=== PATIENT | male | born 2000 | race Caucasian/White ===

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

== ENCOUNTER 2020-12-21 19:04 | Emergency (ER) | payer SELFPAY ==
[~2020-12-21] VITALS: Ht 172 cm; Wt 121.9 kg
[2020-12-21] MEDS ORDERED: LACTATED RINGERS 1,000 ML IV ONE (19:15)
[2020-12-21] MEDS ORDERED: ONDANSETRON 4 MG/2 ML (SDV) Z0FRAN IVP ONE (19:15)
--- NOTE | 2020-12-21 19:19 | ED Abdominal Pain ---
General Stated Complaint: STOMACH PAIN/SWELLING Source of Information: Patient History of Present Illness Date Seen by Provider: Dec 21, 2020 Time Seen by Provider: 19:11 Initial Comments PT ARRIVES VIA POV FROM HOME C/O LLQ PAIN SINCE Tuesday12/18/20 PAIN IS SHARP AT TIMES, IS THERE MOST OF THE TIME, BUT NOT WHILE HE SLEEPS NO RADIATION OF PAIN PAIN IS WORSE WITH SITTING OR STANDING, BETTER WITH LAYING DOWN STATES HE ATE PIZZA AN HOUR AGO. + NAUSEA, NO VOMITING HAD NORMAL BM TODAY NO URINARY SYMPTOMS NO FEVER NO KNOWN INJURY, BUT LIFTS HEAVY OBJECTS ALL DAY--[place] [employer] [place] LIFT[place] 400-500 LB PIECES OF [employer] WITH ONE OTHER PERSON THIS WEEK TOOK IBUPROFEN 4 HOURS AGO, WITH A LITTLE RELIEF NO HISTORY OF SIMILAR OR PRIOR ABDOMINAL SURGERY PCP: ISHA Allergies and Home Medications Allergies Coded Allergies: No Known Drug Allergies (Unverified , 02/13/14) Home Medications Azithromycin 250 Mg Tablet, 250 MG PO UD TAKE 2 TABLETS TODAY, THEN TAKE 1 TABLET DAILY FOR 4 MORE DAYS Prescribed by: GERA MILLER on 01/20/162036 Cephalexin 500 Mg Capsule, 1,000 MG PO BID Prescribed by: LELO LUNA on 04/17/16339 Cyclobenzaprine HCl 10 Mg Tablet, 10 MG PO Q8H PRN for SPASMS Prescribed by: HERBERT GAVIRIA on 12/21/202032 D-Methorphan Hb/P-Epd HCl/Bpm 118 Ml Syrup, 5-10 ML PO Q6H PRN for CONGESTION Prescribed by: CARLA MONGE on 08/23/162147 Meloxicam 15 Mg Tablet, 15 MG PO DAILY Prescribed by: HERBERT GAVIRIA on 12/21/202032 Mupirocin Calcium 15 Gm Cream..g., 1 GM TP BID Prescribed by: LELO LUNA on 04/17/16340 Prednisone 20 Mg Tab, 40 MG PO DAILY Prescribed by: DENIS FRANK on 06/18/172238 Patient Home Medication List Home Medication List Reviewed: Yes Review of Systems Review of Systems Constitutional: no symptoms reported Respiratory: No Symptoms Reported Cardiovascular: No Symptoms Reported Gastrointestinal: See HPI, Abdominal Pain; Denies Constipated, Denies Diarrhea; Nausea; Denies Vomiting Genitourinary: No Symptoms Reported Musculoskeletal: no symptoms reported; No back pain Skin: no symptoms reported Psychiatric/Neurological: No Symptoms Reported Endocrine: No Symptoms Reported Hematologic/Lymphatic: No Symptoms Reported Past Dskxzms-Qunpju-Qwgngb Hx Past Med/Social Hx: Reviewed and Corrections made Patient Social History Alcohol Use: Occasionally Uses Drug of Choice: DENIES Smoking Status: Former Smoker (SMOKED 1/2 PPD, QUIT 4 MONTHS AGO 09/2020) Type Used: Cigarettes Recent Hopitalizations: No Immunizations Up To Date PED Vaccines UTD: Yes Seasonal Allergies Seasonal Allergies: No Past Medical History Surgeries: No Respiratory: No Cardiac: No Neurological: No Reproductive Disorders: No Genitourinary: No Gastrointestinal: No Musculoskeletal: No Endocrine: No HEENT: No Cancer: No Psychosocial: Yes ADD/ADHD, Bipolar Integumentary: No Blood Disorders: No Adverse Reaction/Blood Tranf: No Family Medical History Asthma Physical Exam Vital Signs Vital Signs - First Documented 12/21/20 19:10 Temp 36.8 Pulse 119 Resp 18 B/P (MAP) 156/118 (131) Pulse Ox 98 O2 Delivery Room Air Capillary Refill : Height/Weight/BMI Height: 5'8.00" Weight: 230lbs. oz. 104.798125nh; 28.12 BMI Method:Stated General Appearance: WD/WN, no apparent distress, obese, other (WALKS UPRIGHT AND MOVES QUICKLY WITHOUT DIFFICULTY. 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, no motor/sensory deficits, alert, normal mood/affect, oriented x 3 Skin: normal color, warm/dry; No rash Focused Exam Lactate Level 12/21/20 19:35: Lactic Acid Level 1.46 Lactic Acid Level Laboratory Tests Test 12/21/20 19:35 Lactic Acid Level 1.46 MMOL/L (0.50-2.00) Progress/Results/Core Measures Results/Orders Lab Results Laboratory Tests Test 12/21/20 19:17 12/21/20 19:35 Range/Units White Blood Count 13.6 H 4.3-11.0 10^3/uL Red Blood Count 5.48 4.30-5.52 10^6/uL Hemoglobin 16.1 13.3-17.7 g/dL Hematocrit 48 40-54 % Mean Corpuscular Volume 87 80-99 fL Mean Corpuscular Hemoglobin 29 25-34 pg Mean Corpuscular Hemoglobin Concent 34 32-36 g/dL Red Cell Distribution Width 11.6 10.0-14.5 % Platelet Count 439 H 130-400 10^3/uL Mean Platelet Volume 9.3 9.0-12.2 fL Immature Granulocyte % (Auto) 0 % Neutrophils (%) (Auto) 69 42-75 % Lymphocytes (%) (Auto) 20 12-44 % Monocytes (%) (Auto) 9 0-12 % Eosinophils (%) (Auto) 2 0-10 % Basophils (%) (Auto) 0 0-10 % Neutrophils # (Auto) 9.4 H 1.8-7.8 10^3/uL Lymphocytes # (Auto) 2.7 1.0-4.0 10^3/uL Monocytes # (Auto) 1.3 H 0.0-1.0 10^3/uL Eosinophils # (Auto) 0.2 0.0-0.3 10^3/uL Basophils # (Auto) 0.0 0.0-0.1 10^3/uL Immature Granulocyte # (Auto) 0.0 0.0-0.1 10^3/uL Urine Color YELLOW Urine Clarity CLEAR Urine pH 6.5 5-9 Urine Specific Maxwell <=1.005 1.016-1.022 Urine Protein NEGATIVE NEGATIVE Urine Glucose (UA) NEGATIVE NEGATIVE Urine Ketones NEGATIVE NEGATIVE Urine Nitrite NEGATIVE NEGATIVE Urine Bilirubin NEGATIVE NEGATIVE Urine Urobilinogen 0.2 < = 1.0 MG/DL Urine Leukocyte Esterase NEGATIVE NEGATIVE Urine RBC (Auto) 1+ H NEGATIVE Urine RBC NONE /HPF Urine WBC NONE /HPF Urine Squamous Epithelial Cells NONE /HPF Urine Crystals NONE /LPF Urine Bacteria NEGATIVE /HPF Urine Casts NONE /LPF Urine Mucus NEGATIVE /LPF Urine Culture Indicated NO Sodium Level 138 135-145 MMOL/L Potassium Level 3.6 3.6-5.0 MMOL/L Chloride Level 103 98-107 MMOL/L Carbon Dioxide Level 22 21-32 MMOL/L Anion Gap 13 5-14 MMOL/L Blood Urea Nitrogen 11 7-18 MG/DL Creatinine 0.90 0.60-1.30 MG/DL Estimat Glomerular Filtration Rate > 60 BUN/Creatinine Ratio 12 Glucose Level 94 70-105 MG/DL Calcium Level 9.6 8.5-10.1 MG/DL Corrected Calcium 9.2 8.5-10.1 MG/DL Total Bilirubin 0.5 0.1-1.0 MG/DL Aspartate Amino Transf (AST/SGOT) 31 5-34 U/L Alanine Aminotransferase (ALT/SGPT) 48 0-55 U/L Alkaline Phosphatase 49 40-136 U/L Total Protein 7.8 6.4-8.2 GM/DL Albumin 4.5 3.2-4.5 GM/DL Amylase Level 73 25-125 U/L Lipase 20 8-78 U/L Urine Opiates Screen NEGATIVE NEGATIVE Urine Oxycodone Screen NEGATIVE NEGATIVE Urine Methadone Screen NEGATIVE NEGATIVE Urine Propoxyphene Screen NEGATIVE NEGATIVE Urine Barbiturates Screen NEGATIVE NEGATIVE Ur Tricyclic Antidepressants Screen NEGATIVE NEGATIVE Urine Phencyclidine Screen NEGATIVE NEGATIVE Urine Amphetamines Screen NEGATIVE NEGATIVE Urine Methamphetamines Screen NEGATIVE NEGATIVE Urine Benzodiazepines Screen NEGATIVE NEGATIVE Urine Cocaine Screen NEGATIVE NEGATIVE Urine Cannabinoids Screen NEGATIVE NEGATIVE Lactic Acid Level 1.46 0.50-2.00 MMOL/L My Orders Orders - HERBERT GAVIRIA DO Ed Iv/Invasive Line Start (12/21/20 19:14) Amylase (12/21/20 19:14) Cbc With Automated Diff (12/21/20 19:14) Comprehensive Metabolic Panel (12/21/20 19:14) Drug Screen Stat (Urine) (12/21/20 19:14) Lactic Acid Analyzer (12/21/20 19:14) Ua Culture If Indicated (12/21/20 19:14) Ed Iv/Invasive Line Start (12/21/20 19:14) Lactated Ringers (Lr 1000 Ml Iv Solution (12/21/20 19:15) Ondansetron Injection (Zofran Injectio (12/21/20 19:15) Ct Abd/Pelvis Wo(Kidney Stone) (12/21/20 19:42) Acute Abd Series (12/21/20 19:42) Ketorolac Injection (Toradol Injection) (12/21/20 19:45) Lipase (12/21/20 19:48) Rx-Cyclobenzaprine Tablet (Rx-Flexeril T (12/21/20 20:34) Medications Given in ED Current Medications Medications Dose Ordered Sig/Genesis Route Start Time Stop Time Status Last Admin Dose Admin Ketorolac Tromethamine 30 mg ONCE ONCE IVP 12/21/20 19:45 12/21/20 19:46 DC 12/21/20 20:01 30 MG Lactated Ringer's 1,000 ml @ 0 mls/hr Q0M ONCE IV 12/21/20 19:15 12/21/20 19:16 DC 12/21/20 19:27 1,000 MLS/HR Ondansetron HCl 4 mg ONCE ONCE IVP 12/21/20 19:15 12/21/20 19:16 DC 12/21/20 19:27 4 MG Vital Signs/I&O 12/21/20 12/21/20 19:10 20:45 Temp 36.8 Pulse 119 94 Resp 18 16 B/P (MAP) 156/118 (131) 126/65 Pulse Ox 98 99 O2 Delivery Room Air Room Air Diagnostic Imaging Comments PER RADIOLOGIST REPORTS AT 2230 ABDOMEN XRAYS--NO ACUTE PROCESS CT ABDOMEN/PELVIS-- FINDINGS: Lung bases: The lung bases are clear. Solid organs: The liver is normal. The gallbladder is normal. There is no biliary ductal dilation. Pancreas is normal. Spleen is normal. Adrenal glands are normal. The kidneys are normal without visualized calculus or hydronephrosis. Bowel: The stomach and small bowel are normal without obstruction. There is scattered colonic diverticulosis. The appendix is normal. Peritoneum: There is no intraperitoneal free fluid or free air. No suspicious lymphadenopathy. Vasculature: Normal without aneurysm. Musculoskeletal: No suspicious osseous lesion or compression fracture. Pelvis: The prostate gland is normal. The urinary bladder is normal. IMPRESSION: 1. No findings of renal calculus or hydronephrosis. 2. Minimal colonic diverticulosis without findings of diverticulitis. Reviewed: Reviewed by Me Departure Impression Primary Impression: LLQ abdominal pain Additional Impression: POSSIBLE ABDOMINAL MUSCLE STRAIN Disposition: HOME, SELF-CARE Condition: Stable Departure-Patient Inst. Referrals: [facility] (PCP/Family) Primary Care Physician Patient Instructions: Abdominal Muscle Strain (DC), Severe Abdominal Pain, Adult (DC) Add. Discharge Instructions: LOTS OF CLEAR LIQUIDS--WATER, BROTH, JELLO, GATORADE TYLENOL NEEDED FOR PAIN FOLLOW UP WITH [facility] IN 3-4 DAYS IF NO BETTER NO LIFTING OVER 20 LBS X 1 WEEK Scripts Cyclobenzaprine HCl (Cyclobenzaprine HCl) 10 Mg Tablet 10 MG PO Q8H PRN for SPASMS, #15 TAB 0 Refills Prov: HERBERT GAVIRIA DO 12/21/20 Meloxicam (Mobic) 15 Mg Tablet 15 MG PO DAILY, #10 TAB Prov: HERBERT GAVIRIA DO 12/21/20 Work/School Note: Work Release Form Date Seen in the Emergency Department: Dec 21, 2020 Return to Work: Dec 22, 2020 Other Restrictions Listed Below: NO LIFTING OVER 20 LBS X 1 WEEK HERBERT GAVIRIA DO Dec 21, 2020 19:19
[2020-12-21 19:24] LABS: BILIRUBIN,URINE NEGATIVE (NEGATIVE); CLARITY,URINE CLEAR; COLOR,URINE YELLOW; GLUCOSE, URINE (UA) NEGATIVE (NEGATIVE); KETONES,URINE NEGATIVE (NEGATIVE); LEUKOCYTE ESTERASE ,URINE NEGATIVE (NEGATIVE); NITRITE,URINE NEGATIVE (NEGATIVE); PH,URINE 6.5 (5-9); PROTEIN,URINE NEGATIVE (NEGATIVE)
[2020-12-21 19:25] LABS: BASOPHILS % (AUTO) 0 % (0-10); EOSINOPHILS # (AUTO) 0.2 10^3/uL (0.0-0.3); EOSINOPHILS % (AUTO) 2 % (0-10); HEMATOCRIT 48 % (40-54); HEMOGLOBIN 16.1 g/dL (13.3-17.7); LYMPHOCYTES # (AUTO) 2.7 10^3/uL (1.0-4.0); LYMPHOCYTES % (AUTO) 20 % (12-44); MEAN CORPUSCULAR HEMOGLOBIN 29 pg (25-34); MEAN CORPUSCULAR HGB CONC 34 g/dL (32-36); MEAN CORPUSCULAR VOLUME 87 fL (80-99); MEAN PLATELET VOLUME 9.3 fL (9.0-12.2); MONOCYTES # (AUTO) 1.3 10^3/uL (0.0-1.0); MONOCYTES % (AUTO) 9 % (0-12); NEUTROPHILS # (AUTO) 9.4 10^3/uL (1.8-7.8); NEUTROPHILS % (AUTO) 69 % (42-75); PLATELET COUNT 439 10^3/uL (130-400); WHITE BLOOD COUNT 13.6 10^3/uL (4.3-11.0)
[2020-12-21 19:32] LABS: BACTERIA,URINE NEGATIVE /HPF
[2020-12-21 19:43] LABS: AMPHETAMINE SCREEN, URINE NEGATIVE (NEGATIVE); BENZODIAZEPINES SCREEN URINE NEGATIVE (NEGATIVE); COCAINE SCREEN URINE NEGATIVE (NEGATIVE); METHAMPHETAMINE SCREEN URINE S NEGATIVE (NEGATIVE)
[2020-12-21 19:44] LABS: BARBITURATE SCREEN URINE NEGATIVE (NEGATIVE); CANNABINOID SCREEN, URINE NEGATIVE (NEGATIVE); METHADONE STAT NEGATIVE (NEGATIVE); OPIATE SCREEN URINE NEGATIVE (NEGATIVE); OXYCODONE STAT NEGATIVE (NEGATIVE); PROPOXYPHENE STAT NEGATIVE (NEGATIVE); TRICYCLIC ANTIDEPRESSANTS SCRE NEGATIVE (NEGATIVE)
[2020-12-21 19:45] LABS: ALANINE AMINOTRANSFERASE 48 U/L (0-55); ALBUMIN 4.5 GM/DL (3.2-4.5); ALKALINE PHOSPHATASE 49 U/L (40-136); AMYLASE 73 U/L (25-125); BILIRUBIN,TOTAL 0.5 MG/DL (0.1-1.0); BUN/CREATININE RATIO 12; CALCIUM 9.6 MG/DL (8.5-10.1); CARBON DIOXIDE 22 MMOL/L (21-32); CHLORIDE 103 MMOL/L (98-107); GFR ESTIMATED > 60; GLUCOSE 94 MG/DL (70-105); POTASSIUM 3.6 MMOL/L (3.6-5.0); SODIUM 138 MMOL/L (135-145); TOTAL PROTEIN 7.8 GM/DL (6.4-8.2)
[2020-12-21] MEDS ORDERED: KETOROLAC 30 MG/ML VIAL IVP ONE (19:45)
--- NOTE | 2020-12-21 20:28 | Diagnostic Imaging Report ---
EXAMINATION: CT Abdomen Pelvis without contrast. TECHNIQUE: Multiple contiguous axial images were obtained through the abdomen and pelvis without the use of intravenous contrast. All CT scans use one or more of the following dose optimizing techniques: automated exposure control, MA and/or KvP adjustment based on a patient size and exam type, or iterative reconstruction. HISTORY: Flank pain, kidney stone suspected COMPARISON: CT abdomen and pelvis 10/29/2015 FINDINGS: Lung bases: The lung bases are clear. Solid organs: The liver is normal. The gallbladder is normal. There is no biliary ductal dilation. Pancreas is normal. Spleen is normal. Adrenal glands are normal. The kidneys are normal without visualized calculus or hydronephrosis. Bowel: The stomach and small bowel are normal without obstruction. There is scattered colonic diverticulosis. The appendix is normal. Peritoneum: There is no intraperitoneal free fluid or free air. No suspicious lymphadenopathy. Vasculature: Normal without aneurysm. Musculoskeletal: No suspicious osseous lesion or compression fracture. Pelvis: The prostate gland is normal. The urinary bladder is normal. IMPRESSION: 1. No findings of renal calculus or hydronephrosis. 2. Minimal colonic diverticulosis without findings of diverticulitis. Dictated by: Dictated on workstation # [id number]
--- NOTE | 2020-12-21 20:29 | Diagnostic Imaging Report ---
EXAMINATION: Abdominal series and chest radiograph HISTORY: abd pain COMPARISON: CT abdomen and pelvis 12/13/2020 FINDINGS: Heart size and pulmonary vasculature are normal. The lungs are clear without consolidation, pleural effusion, or pneumothorax. The osseous structures are intact. There is moderate amount of gas and stool throughout the colon. Nonobstructive bowel gas pattern. No radiopaque foreign body. The osseous structures are intact. IMPRESSION: No acute abnormality in the chest or abdomen. Dictated by: Dictated on workstation # [id number]
[2020-12-21] MEDS ORDERED: CYCL10TA9 PO (20:33)
[2020-12-21] MEDS ORDERED: MELO15TA14 PO (20:33)
[2020-12-21] MEDS ORDERED: RX-CYCLOBENZAPRINE 10 MG (FLEXERIL) TAB PPK#3 PO STA (20:34)
[2020-12-21 20:45] VITALS: BP 126/65
== END 2020-12-21 20:46 | disposition home or self-care (01) ==
LOC: EDUNIT# 19:04 → ER 19:06
DX: R10.32 Left lower quadrant pain (principal); I10 Essential (primary) hypertension; E66.9 Obesity, unspecified; Z68.28 Body mass index [BMI] 28.0-28.9, adult; Z87.891 Personal history of nicotine dependence; Z79.52 Long term (current) use of systemic steroids
CPT/HCPCS: 36415; 74022; 74176; 80053; 80306; 81000; 82150; 83605; 83690; 85025

== ENCOUNTER 2021-02-24 04:59 | Emergency (ER) | payer SELFPAY ==
[~2021-02-24] VITALS: Ht 175 cm; Wt 113.4 kg
[~2021-02-24 04:59] MED LIST changes: +CYCL10TA9 PO; +MELO15TA14 PO
[2021-02-24 05:05] VITALS: BP 141/107
[2021-02-24] MEDS ORDERED: ESCI5TAB PO (05:10)
--- NOTE | 2021-02-24 05:21 | ED EENT ---
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 Source: patient Exam Limitations: no limitations ([place]) History of Present Illness Date Seen by Provider: Feb 24, 2021 Time Seen by Provider: 05:10 Initial Comments Pt presents to ED via POV with complaint of R ear pain. He states that he woke up at 4AM this morning with R ear pain/pressure that he rates 4/10. He states that he has some loss of hearing. He put peroxide in his ear thinking that it was an insect that crawled into his ear. He hasn't taken anything for the pain. Denies prior episodes of similar symptoms. He denies other symptoms of chest pain, SOB, N/V, abd pain, dysuria. Timing/Duration: this morning Severity: moderate Location: ear (R) Prearrival Treatment: no prearrival treatment Presenting Symptoms/Injuries: R ear pain/fullness Associated Symptoms: change in hearing; No cough, No ear drainage, No fever; nasal congestion/drainage ([place]) Allergies and Home Medications Allergies Coded Allergies: No Known Drug Allergies (Unverified , 02/13/14) Patient Home Medication List Home Medication List Reviewed: Yes ([place]) Review of Systems Review of Systems Constitutional: No chills, No fever Eyes: Denies Blurred Vision, Denies Pain, Denies Vision Changes Ears: Pain Nose: denies pain, denies purulent discharge Mouth: denies pain, denies swelling Throat: denies pain, denies swelling Respiratory: No cough, No short of breath Cardiovascular: No chest pain, No edema Gastrointestinal: No abdominal pain, No constipation, No diarrhea Musculoskeletal: No back pain, No joint pain, No muscle pain Skin: No change in color, No rash Neurological: Denies Headache, Denies Numbness, Denies Paresthesia, Denies Tingling ([place]) All Other Systems Reviewed Negative Unless Noted: Yes ([place]) Past Wfwthrk-Ihopna-Orkrel Hx Past Med/Social Hx: Reviewed Nursing Past Med/Soc Hx ([place]) Patient Social History Alcohol Use: Denies Use Drug of Choice: DENIES Smoking Status: Current Everyday Smoker Type Used: Cigarettes Former Smoker, Quit: Aug 26, 2020 Recent Infectious Disease Expo: No Recent Hopitalizations: No ([place] Taaz STUDENT) Immunizations Up To Date Tetanus Booster (TDap): Unknown PED Vaccines UTD: Yes ([place] [employer] STUDENT) Seasonal Allergies Seasonal Allergies: No ([place] [employer] STUDENT) Past Medical History Surgeries: No Respiratory: No Cardiac: No Neurological: No Reproductive Disorders: No Genitourinary: No Gastrointestinal: No Musculoskeletal: No Endocrine: No HEENT: No Cancer: No Psychosocial: Yes ADD/ADHD, Bipolar, Violent Behavior Integumentary: No Blood Disorders: No Adverse Reaction/Blood Tranf: No ([place] [employer] STUDENT) Family Medical History Asthma ([place] [employer] STUDENT) Physical Exam Vital Signs Vital Signs - First Documented 02/24/21 05:05 Temp 36.9 Pulse 90 Resp 18 B/P (MAP) 141/107 (118) Pulse Ox 99 O2 Delivery Room Air (ADDIE RED) Height, Weight, BMI Height: 5'8.00" Weight: 230lbs. oz. 104.328643am; 37.00 BMI Method:Stated General Appearance: WD/WN, no apparent distress Eyes: bilateral eye normal inspection, bilateral eye PERRL, bilateral eye EOMI Ears: right ear erythema (R ear canal erythema), right ear TM bulging (TM bulging with purulent fluid ); left ear auricle normal, left ear other (L ear canal obstructed with dried blood) Nose: normal inspection Mouth/Throat: normal mouth inspection, pharynx normal Neck: non-tender, full range of motion, supple, normal inspection Cardiovascular: normal peripheral pulses, regular rate, rhythm Respiratory: chest non-tender, lungs clear, normal breath sounds, no respiratory distress, no accessory muscle use Gastrointestinal: normal bowel sounds, non tender, soft Neurologic/Psychiatric: no motor/sensory deficits, alert, normal mood/affect, oriented x 3 Skin: normal color, warm/dry ([place] [employer] STUDENT) Progress/Results/Core Measures Results/Orders Vital Signs/I&O 02/24/21 05:05 Temp 36.9 Pulse 90 Resp 18 B/P (MAP) 141/107 (118) Pulse Ox 99 O2 Delivery Room Air (ADDIE RED) Blood Pressure Mean: 118 Progress Progress Note : Time: 05:33 Progress Note I attest that I saw this patient alongside the medical student and agree with his documented history, physical exam and review of systems except as otherwise noted. Patient uses Q-tips. We did some counseling on appropriate ear hygiene. This appears to have a little superficial otitis externa as well as injected, bulging purulent TMs we will put him on topical and p.o. pills. (ADDIE RED) Departure Impression Primary Impression: Otitis media Qualified Codes: H66.001 - Acute suppurative otitis media without spontaneous rupture of ear drum, right ear Additional Impression: Otitis externa Qualified Codes: H60.391 - Other infective otitis externa, right ear Disposition: HOME, SELF-CARE Condition: Stable Departure-Patient Inst. Decision time for Depature: 05:37 (ADDIE RED) Referrals: [facility] (PCP/Family) Primary Care Physician Patient Instructions: Ear Infection ED, Outer Ear Infection (DC) Add. Discharge Instructions: Warm moist compress applied directly over ear for pain relief. 1000 mg of Tylenol every 8 hours as necessary for pain. Ibuprofen 800 mg every 8 hours as necessary for pain. Antibiotic should start helping relieve the pain and swelling over the next 3 to 4 days. All discharge instructions reviewed with patient and/or family. Voiced understanding. Scripts Amoxicillin/Potassium Clav (Augmentin 875-125 Tablet) 1 Each Tablet 1 EACH PO BID for 10 Days, #20 TAB 0 Refills Prov: ADDIE RED 02/24/21 Neomycin/Polymyxin B Sulf/Hc (Aadwovxe-Iqdyfdrzk-Yy Ear Soln) 10 Ml Solution 4 DROPS OT TID for 7 Days, #1 EA 0 Refills Prov: ADDIE RED 02/24/21 Work/School Note: Work Release Form Date Seen in the Emergency Department: Feb 24, 2021 Return to Work: Feb 25, 2021 Restrictions: No Restrictions [place] MED STUDENT Feb 24, 2021 05:21 ADDIE RED Feb 24, 2021 05:38
[2021-02-24] MEDS ORDERED: NEOM10SO8 OT (05:46)
[2021-02-24] MEDS ORDERED: AMOX-358 PO (05:46)
== END 2021-02-24 05:55 | disposition home or self-care (01) ==
LOC: EDUNIT# 04:59 → ER 05:01
DX: H66.91 Otitis media, unspecified, right ear (principal); H60.91 Unspecified otitis externa, right ear; F17.210 Nicotine dependence, cigarettes, uncomplicated
CPT/HCPCS: 99282

== ENCOUNTER 2021-04-05 21:47 | Emergency (ER) | payer SELFPAY ==
[~2021-04-05] VITALS: Ht 172 cm; Wt 113.4 kg
[~2021-04-05 21:47] MED LIST changes: +AMOX-358 PO; +ESCI5TAB PO; +NEOM10SO8 OT
--- NOTE | 2021-04-05 22:40 | ED Integumentary General ---
General Chief Complaint: Skin/Wound Problems Stated Complaint: INSECT BITE ON BACK Nursing Triage Note: c/o L back redness x 2 days Source: patient Exam Limitations: no limitations History of Present Illness Date Seen by Provider: Apr 05, 2021 Time Seen by Provider: 22:30 Initial Comments Patient is a 20-year-old male who presents to the emergency department with chief complaint of concern for a bug bite or insect sting to his left flank just inferior to his left shoulder blade that happened yesterday. Patient states his is concerned that he might have "blood poisoning" as she felt like to there was some streaking from around the area. Patient is not a diabetic. He has not run any fever. He states it itches a little bit. No drainage from the area. No other constitutional complaints. All other review of systems reviewed and negative except as stated above. Timing/Duration: yesterday Severity: mild Possible Cause: insect bite, insect sting Allergies and Home Medications Allergies Coded Allergies: No Known Drug Allergies (Unverified , 02/13/14) Home Medications Amoxicillin/Potassium Clav 1 Each Tablet, 1 EACH PO BID Prescribed by: ADDIE RED on 02/24/2146 Neomycin/Polymyxin B Sulf/Hc 10 Ml Solution, 4 DROPS OT TID Prescribed by: ADDIE RED on 02/24/21 0546 Patient Home Medication List Home Medication List Reviewed: Yes Review of Systems Review of Systems Constitutional: see HPI EENTM: no symptoms reported Respiratory: no symptoms reported Cardiovascular: no symptoms reported Gastrointestinal: no symptoms reported Genitourinary: no symptoms reported Musculoskeletal: no symptoms reported Skin: rash (Left upper flank just below the left shoulder blade) Past Kahgsbl-Lgwwty-Kmqffc Hx Patient Social History Tobacco Use?: Yes Immunizations Up To Date Tetanus Booster (TDap): Unknown PED Vaccines UTD: Yes Seasonal Allergies Seasonal Allergies: No Past Medical History Surgeries: No Respiratory: No Cardiac: No Neurological: No Reproductive Disorders: No Genitourinary: No Gastrointestinal: No Musculoskeletal: No Endocrine: No HEENT: No Cancer: No Psychosocial: Yes ADD/ADHD, Bipolar, Violent Behavior Integumentary: No Blood Disorders: No Adverse Reaction/Blood Tranf: No Family Medical History Asthma Physical Exam Vital Signs Vital Signs - First Documented 04/05/21 22:02 Temp 36.4 Pulse 98 Resp 18 B/P (MAP) 134/77 (96) Pulse Ox 98 Capillary Refill : General Appearance: WD/WN, no apparent distress Neck: full range of motion Cardiovascular: regular rate, rhythm Respiratory: no respiratory distress, no accessory muscle use Extremities: normal range of motion Neurologic/Psychiatric: alert, normal mood/affect, oriented x 3 Skin: normal color, warm/dry, other (Patient has an 8 x 6 area of erythema just inferior to the left shoulder blade and the left flank. Mildly erythematous, a little bit of skin thickening no fluctuance no drainage. It is not overtly tender to palpation. No lymphangitic streaking from the wound) Progress/Results/Core Measures Results/Orders Vital Signs/I&O 04/05/21 22:02 Temp 36.4 Pulse 98 Resp 18 B/P (MAP) 134/77 (96) Pulse Ox 98 Blood Pressure Mean: 96 Departure Impression Primary Impression: Insect bite Qualified Codes: S20.462A - Insect bite (nonvenomous) of left back wall of thorax, initial encounter; W57.XXXA - Bitten or stung by nonvenomous insect and other nonvenomous arthropods, initial encounter Disposition: 01 HOME, SELF-CARE Condition: Stable Departure-Patient Inst. Decision time for Depature: 22:39 Referrals: [facility] (PCP/Family) Primary Care Physician Patient Instructions: Insect Bites and Stings Add. Discharge Instructions: You can apply cold compresses to the area to help reduce swelling and redness. You can put ajrt-prb-jkhqavg cortisone 10 on the itchy spot to help decrease the discomfort from the bite. Vclr-ejv-aytqtda ibuprofen as needed for any discomfort as well. Return to the emergency room if you have continuing enlargement of the red area especially with fevers, chills or any other emergent concerning symptoms. PABLO SANTOS MD Apr 05, 2021 22:39
[2021-04-05 22:43] VITALS: BP 134/77
== END 2021-04-05 22:43 | disposition home or self-care (01) ==
LOC: EDUNIT# 21:47 → ER 21:52
DX: S40.262A Insect bite (nonvenomous) of left shoulder, initial encounter (principal); W57.XXXA Bitten or stung by nonvenomous insect and other nonvenomous arthropods, initial encounter
CPT/HCPCS: 99282

== ENCOUNTER 2021-04-21 20:57 | Emergency (ER) | payer SELFPAY ==
[~2021-04-21] VITALS: Ht 172.7 cm; Wt 103.0 kg
--- NOTE | 2021-04-21 22:46 | ED General ---
General Chief Complaint: Fever-Adult/Adol Stated Complaint: COUGH, SOB Source of Information: Patient Exam Limitations: No Limitations History of Present Illness Date Seen by Provider: Apr 21, 2021 Time Seen by Provider: 22:00 Initial Comments Here with onset of symptoms of shortness of breath, cough, fever and body aches over the last 2 days. No known Covid exposure although he is out in the community quite a bit. He is unvaccinated. Does smoke. He is obese. Denies other significant medical problems personally. 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 Timing/Duration: 2-3 Days Severity: Moderate Modifying Factors: improves with Rest Associated Systoms: Cough, Fever/Chills, Shortness of Air Allergies and Home Medications Allergies Coded Allergies: No Known Drug Allergies (Unverified , 02/13/14) Home Medications Amoxicillin/Potassium Clav 1 Each Tablet, 1 EACH PO BID Prescribed by: ADDIE RED on 02/24/21 0546 Neomycin/Polymyxin B Sulf/Hc 10 Ml Solution, 4 DROPS OT TID Prescribed by: ADDIE RED on 02/24/21 0546 Patient Home Medication List Home Medication List Reviewed: Yes Review of Systems Review of Systems Constitutional: see HPI; No chills; fever EENTM: nose congestion, throat pain Respiratory: cough, short of breath Cardiovascular: no symptoms reported Gastrointestinal: no symptoms reported Genitourinary: no symptoms reported Skin: no symptoms reported Psychiatric/Neurological: No Symptoms Reported Past Phrcqsg-Ekbkup-Nhobre Hx Patient Social History Tobacco Use?: Yes Tobacco type used: Cigarettes Smoking Status: Current Everyday Smoker Alcohol Use?: No Immunizations Up To Date Tetanus Booster (TDap): Unknown PED Vaccines UTD: Yes Seasonal Allergies Seasonal Allergies: No Past Medical History Surgeries: No Respiratory: No Cardiac: No Neurological: No Reproductive Disorders: No Genitourinary: No Gastrointestinal: No Musculoskeletal: No Endocrine: No HEENT: No Cancer: No Psychosocial: Yes ADD/ADHD, Bipolar, Violent Behavior Integumentary: No Blood Disorders: No Adverse Reaction/Blood Tranf: No Family Medical History Reviewed Nursing Family Hx Asthma Physical Exam Vital Signs Capillary Refill : Height, Weight, BMI Height: 5'8.00" Weight: 230lbs. oz. 104.042111bs; 38.00 BMI Method:Stated General Appearance: No Apparent Distress, WD/WN HEENT: PERRL/EOMI, Pharynx Normal Neck: Non Tender, Supple Respiratory: Lungs Clear, Normal Breath Sounds Cardiovascular: No Murmur, Tachycardia Gastrointestinal: Non Tender, Soft Extremity: Normal Range of Motion, Non Tender Neurologic/Psychiatric: Alert, Oriented x3 Progress/Results/Core Measures Suspected Sepsis SIRS Temperature: Pulse: Respiratory Rate: Blood Pressure / Mean: Results/Orders Lab Results Laboratory Tests Test 04/21/21 21:27 Range/Units SARS-CoV-2 RNA (RT-PCR) Detected H Not Detecte Vital Signs/I&O Capillary Refill : Progress Note : Progress Note Seen and evaluated. Covid test ordered and completed and patient is positive. He is not hypoxic. BMI is approximately 35. Meets criteria for antibody infusion therapy. I did discuss risk and benefits and information sheet given. Patient has elected to get this therapy if it is available. This was ordered and order sent to pharmacy. I did discuss with him regarding COVID-19 instructions for those that are positive including isolation. Discharged home with return precautions. Patient verbalized understanding of instructions and agreement with plan. Departure Impression Primary Impression: COVID-19 virus infection Disposition: HOME, SELF-CARE Condition: Stable Departure-Patient Inst. Referrals: [facility] (PCP/Family) Primary Care Physician Patient Instructions: COVID-19 (DC), REGEN-COV (casirivimab and imdevimab) FDA Fact Sheet Add. Discharge Instructions: All discharge instructions reviewed with patient and/or family. Voiced understanding. Drink plenty of fluids and get plenty of rest. Your COVID-19 test was positive. You will need to remain in isolation for at least 10 days with day 0 __04/19/21__ and you will count for 10 days from there. You must be symptom improving and fever free in the last 3 days without fever reducing medicines to be out of isolation after the 10th day. The health department should contact you to direct timeframe as well. You need to notify your close contacts so that they may quarantine and this will include anybody that you are around for 10 minutes within 6 feet 2 days prior to onset of symptoms. Monitor your oxygen saturation while resting. Currently it is _98_ percent. If that starts to decline to the low 90s and certainly below 90, please return immediately to the emergency department for further evaluation. You may take ibuprofen 600 mg every 8 hours as needed for fever or pain. You may take Tylenol/acetaminophen 1000 mg every 8 hours as needed for fever or pain. Return for worse pain, fever, vomiting, weakness, breathing problems or other concerns as needed. The hospital will call you regarding antibody infusion therapy. Follow their instructions for date, time and place of infusion. PARI WISE MD Apr 21, 2021 22:46
[2021-04-21 23:04] VITALS: BP 110/81
== END 2021-04-21 22:45 | disposition home or self-care (01) ==
LOC: EDUNIT# 20:57 → ER 20:59
DX: U07.1 COVID-19 (principal); F17.210 Nicotine dependence, cigarettes, uncomplicated
CPT/HCPCS: 87636; 99282

== ENCOUNTER 2021-10-04 20:07 | Emergency (ER) | payer BC, OTHER ==
[~2021-10-04] VITALS: Ht 175.6 cm; Wt 111.0 kg
[~2021-10-04 20:07] MED LIST changes: +CYCL10TA25 PO; -CYCL10TA9 PO
[2021-10-04 20:25] VITALS: BP 128/76
--- NOTE | 2021-10-04 20:28 | ED EENT ---
History of Present Illness General Chief Complaint: Dental Problems/Pain Stated Complaint: DENTAL PAIN Source: patient Exam Limitations: no limitations History of Present Illness Date Seen by Provider: Oct 04, 2021 Time Seen by Provider: 20:26 Initial Comments To ER with right lower dental pain is an ongoing issue. He saw a dentist about a week ago and was given penicillin which caused chest pain so he did not take any further doses. He was then started on clindamycin yesterday as well as Relafen for pain control. Has been using some topical analgesics without much relief. Timing/Duration: abrupt Severity: moderate Location: dental Associated Symptoms: denies symptoms Allergies and Home Medications Allergies Coded Allergies: No Known Drug Allergies (Unverified , 02/13/14) Patient Home Medication List Home Medication List Reviewed: Yes Amoxicillin/Potassium Clav (Augmentin 875-125 Tablet) 1 Each Tablet, 1 EACH PO BID Prescribed by: ADDIE RED on 02/24/21 0546 Escitalopram Oxalate (Lexapro) 5 Mg Tablet, Unknown Dose PO, (Reported) Entered as Reported by: TAMMIE RODRIGUEZ on 02/24/21 05 Neomycin/Polymyxin B Sulf/Hc (Hhqvoapj-Nphanfysv-Se Ear Soln) 10 Ml Solution, 4 DROPS OT TID Prescribed by: ADDIE RED on 02/24/21 0546 Review of Systems Review of Systems Constitutional: see HPI Eyes: No Symptoms Reported Ears: No Symptoms Reported Nose: no symptoms reported Mouth: see HPI Throat: no symptoms reported Respiratory: no symptoms reported Cardiovascular: no symptoms reported Musculoskeletal: no symptoms reported Skin: no symptoms reported Neurological: No Symptoms Reported Hematologic/Lymphatic: No Symptoms Reported Immunological/Allergic: no symptoms reported Past Aepfuox-Liosij-Fjsyaf Hx Immunizations Up To Date Tetanus Booster (TDap): Unknown PED Vaccines UTD: Yes Seasonal Allergies Seasonal Allergies: No Past Medical History Surgeries: No Respiratory: No Cardiac: No Neurological: No Reproductive Disorders: No Genitourinary: No Gastrointestinal: No Musculoskeletal: No Endocrine: No HEENT: No Cancer: No Psychosocial: Yes ADD/ADHD, Bipolar, Violent Behavior Integumentary: No Blood Disorders: No Adverse Reaction/Blood Tranf: No Family Medical History Asthma Physical Exam Height, Weight, BMI Height: 5'8.00" Weight: 230lbs. oz. 104.807291dj; 34.00 BMI Method:Stated General Appearance: WD/WN, no apparent distress Eyes: bilateral eye normal inspection, bilateral eye PERRL, bilateral eye EOMI Ears: bilateral ear auricle normal, bilateral ear canal normal, bilateral ear TM normal Mouth/Throat: normal mouth inspection, pharynx normal Neck: non-tender, full range of motion; No lymphadenopathy (R), No lymphadenopathy (L); other (Bilateral lower molars are fractured and carious without edema or fluctuant abscess) Respiratory: no respiratory distress, no accessory muscle use Gastrointestinal: normal bowel sounds, non tender, soft Neurologic/Psychiatric: alert, normal mood/affect, oriented x 3 Skin: normal color, warm/dry Progress/Results/Core Measures Results/Orders My Orders Orders - CARLA MONGE APRN Rx-Hydrocodone/Apap 5-325 Mg (Rx-Vicodin (10/04/21 20:30) Bupivacaine 0.5% Injection (Sensorcaine (10/04/21 20:30) Departure Communication (Admissions) I did an inferior alveolar nerve block on the right using 1.5 mL of 0.5% bupivacaine without epinephrine. Impression Primary Impression: Pain, dental Disposition: 01 HOME, SELF-CARE Condition: Stable Departure-Patient Inst. Decision time for Depature: 20:28 Referrals: [facility] [place] (PCP/Family) Primary Care Physician Patient Instructions: Dental Pain Add. Discharge Instructions: Continue the clindamycin. Continue the Relafen. Add the hydrocodone to the pain medication regimen. All discharge instructions reviewed with patient and/or family. Voiced understanding. CARLA MONGE APRN Oct 04, 2021 20:28
[2021-10-04] MEDS ORDERED: BUPIVACAINE 0.5% 30 ML (SENSORCAINE) VIAL INJ ONE (20:30)
== END 2021-10-04 20:47 | disposition home or self-care (01) ==
LOC: EDUNIT# 20:07 → ER 20:13
DX: K08.89 Other specified disorders of teeth and supporting structures (principal)
CPT/HCPCS: 99283

== ENCOUNTER 2021-10-16 16:20 | Emergency (ER) | payer BC ==
[~2021-10-16] VITALS: Ht 172.7 cm; Wt 111.1 kg
[2021-10-16 16:43] VITALS: BP 143/90
[2021-10-16] MEDS ORDERED: ACHD5005 PO (16:54)
--- NOTE | 2021-10-16 16:55 | ED EENT ---
History of Present Illness General Chief Complaint: Dental Problems/Pain Stated Complaint: MOUTH PAIN Source: patient Exam Limitations: no limitations History of Present Illness Date Seen by Provider: Oct 16, 2021 Time Seen by Provider: 16:51 Initial Comments To ER with right lower dental pain. This has been an ongoing issue he is on clindamycin currently. Scheduled to have tooth extraction in a few days with Dr. WEBSTER. Timing/Duration: abrupt Severity: moderate Location: dental Prearrival Treatment: no prearrival treatment Associated Symptoms: denies symptoms Allergies and Home Medications Allergies Coded Allergies: No Known Drug Allergies (Unverified , 02/13/14) Patient Home Medication List Home Medication List Reviewed: Yes Amoxicillin/Potassium Clav (Augmentin 875-125 Tablet) 1 Each Tablet, 1 EACH PO BID Prescribed by: ADDIE RED on 02/24/21545 Escitalopram Oxalate (Lexapro) 5 Mg Tablet, Unknown Dose PO, (Reported) Entered as Reported by: TAMMIE RODRIGUEZ on 02/24/21509 Neomycin/Polymyxin B Sulf/Hc (Jboyjxwq-Adhtatogt-Xz Ear Soln) 10 Ml Solution, 4 DROPS OT TID Prescribed by: ADDIE RED on 02/24/21545 Review of Systems Review of Systems Constitutional: see HPI Eyes: No Symptoms Reported Ears: No Symptoms Reported Nose: no symptoms reported Mouth: see HPI Throat: no symptoms reported Respiratory: no symptoms reported Cardiovascular: no symptoms reported Musculoskeletal: no symptoms reported Past Fhqcakq-Hvhmyi-Bgfauw Hx Immunizations Up To Date Tetanus Booster (TDap): Unknown PED Vaccines UTD: Yes Seasonal Allergies Seasonal Allergies: No Past Medical History Surgeries: No Respiratory: No Cardiac: No Neurological: No Reproductive Disorders: No Genitourinary: No Gastrointestinal: No Musculoskeletal: No Endocrine: No HEENT: No Cancer: No Psychosocial: Yes ADD/ADHD, Bipolar, Violent Behavior Integumentary: No Blood Disorders: No Adverse Reaction/Blood Tranf: No Family Medical History Asthma Physical Exam Height, Weight, BMI Height: 5'8.00" Weight: 230lbs. oz. 104.165886vf; 35.00 BMI Method:Stated General Appearance: WD/WN, no apparent distress Eyes: bilateral eye normal inspection, bilateral eye PERRL, bilateral eye EOMI Ears: bilateral ear auricle normal, bilateral ear canal normal, bilateral ear TM normal Mouth/Throat: normal mouth inspection, other (Fractured and tender right lower molar. No fluctuance or drainable abscess. No swelling.) Neck: non-tender, full range of motion; No lymphadenopathy (R), No lymphadenopathy (L) Respiratory: no respiratory distress, no accessory muscle use Neurologic/Psychiatric: alert, normal mood/affect, oriented x 3 Skin: normal color, warm/dry Departure Communication (Admissions) 5605-we did an inferior alveolar nerve block on the right using a 3 mL syringe with 2 mL of 0.5% bupivacaine without epinephrine and using a 27-gauge needle. Patient tolerated well. He had good results with this last time. Impression Primary Impression: Pain, dental Disposition: HOME, SELF-CARE Condition: Stable Departure-Patient Inst. Decision time for Depature: 16:53 [facility]errals: [facility] [place] (PCP/Family) Primary Care Physician Patient Instructions: Dental Pain (DC) Add. Discharge Instructions: 1. Keep your appointment with the dentist. Continue the clindamycin 1 tablet every 8 hours. Return to ER for any concerns. Medication as directed. All discharge instructions reviewed with patient and/or family. Voiced understanding. Scripts Hydrocodone/Acetaminophen (Hydrocodone-Acetamin 5-325 mg) 1 Each Tablet 1 TAB PO Q4H PRN for PAIN-MODERATE (5-7), #14 TAB Prov: CARLA MONGE APRN 10/16/21 Work/School Note: Work Release Form Date Seen in the Emergency Department: Oct 16, 2021 Return to Work: Oct 17, 2021 CARLA MONGE APRN Oct 16, 2021 16:55
== END 2021-10-16 16:59 | disposition home or self-care (01) ==
LOC: EDUNIT# 16:20 → ER 16:22
DX: K08.89 Other specified disorders of teeth and supporting structures (principal); F31.9 Bipolar disorder, unspecified; F90.9 Attention-deficit hyperactivity disorder, unspecified type
CPT/HCPCS: 99281

== ENCOUNTER 2022-04-26 21:46 | Emergency (ER) | payer SELFPAY ==
[~2022-04-26] VITALS: Ht 172.7 cm; Wt 104.4 kg
[~2022-04-26 21:46] MED LIST changes: +ACHD5005 PO
[2022-04-26 22:06] VITALS: BP 139/89
[2022-04-26] MEDS ORDERED: RX-NAPROXEN (NAPROSYN) 250 MG TAB PPK#4 PO STA (22:28)
[2022-04-26] MEDS ORDERED: TRAM-42 PO (22:30)
[2022-04-26] MEDS ORDERED: NAPR500T8 PO (22:30)
[2022-04-26] MEDS ORDERED: LIDOCAINE 2% VISCOUS 15 ML UDC MM ONE (22:30)
[2022-04-26] MEDS ORDERED: LIDO20SO23 MM (22:30)
--- NOTE | 2022-04-26 22:31 | ED EENT ---
History of Present Illness General Chief Complaint: Dental Problems/Pain Stated Complaint: DENTAL PAIN Nursing Triage Note: PT ARRIVAL TO ER WITH COMPLAINT OF DENTAL PAIN ON TOP RIGHT. PT STATES THAT PAIN WORSENED THIS EVENING. PT STATES THAT HE WAS SEEN BY DENTIST ON TUESDAY AND NEEDS A ROOT CANAL, BUT THEY ARE UNABLE TO GET HIM IN FOR PROCEDURE UNTIL 07/07/22. PT WAS STARTED ON ANTIBIOTIC CLINDAMYCIN Source: patient History of Present Illness Date Seen by Provider: Apr 26, 2022 Time Seen by Provider: 22:22 Initial Comments PT ARRIVES VIA POV FROM HOME C/O DENTAL PAIN--RIGHT UPPER 2ND MOLAR AREA STATES HE HAS HAD ONGOING PROBLEMS WITH THIS TOOTH ( STATES IT WAS CRACKED IN THE PAST, WHEN HE HAD HIS WISDOM TEETH PULLED OUT) HAS HAD BAD PAIN TO TOOTH FOR THE LAST COUPLE OF WEEKS SAW DENTIST AT [facility] ON Tuesday04/24/22, AND GIVEN RX FOR CLINDAMYCIN, AND IS SCHEDULED TO HAVE A ROOT CANAL DONE ON THE TOOTH ON JULY 07. STATES TONIGHT, THE PAIN BECAME SEVERE ABOUT AN HOUR AGO, AND TOOTH IS THROBBING AND NO RELIEF WITH TYLENOL 500 MG + MOTRIN 800 MG NO FEVER NO SWELLING TO FACE Allergies and Home Medications Allergies Coded Allergies: No Known Drug Allergies (Unverified , 02/13/14) Patient Home Medication List Home Medication List Reviewed: Yes Amoxicillin/Potassium Clav (Augmentin 875-125 Tablet) 1 Each Tablet, 1 EACH PO BID Prescribed by: ADDIE RED on 02/24/21 0546 Escitalopram Oxalate (Lexapro) 5 Mg Tablet, Unknown Dose PO, (Reported) Entered as Reported by: TAMMIE RODRIGUEZ on 02/24/21 0510 Hydrocodone/Acetaminophen (Hydrocodone-Acetamin 5-325 mg) 1 Each Tablet, 1 TAB PO Q4H PRN for PAIN-MODERATE (5-7) Prescribed by: CARLA MONGE on 10/16/21 1654 Lidocaine HCl (Lidocaine HCl Viscous) 2 % Solution, 1-2 ML MM [id number] Prescribed by: HERBERT GAVIRIA on 04/26/22 2230 Naproxen (Naproxen) 500 Mg Tablet.dr, 500 MG PO BID Prescribed by: HERBERT GAVIRIA on 04/26/222229 Neomycin/Polymyxin B Sulf/Hc (Hoozdbrc-Kciftkwpf-Bx Ear Soln) 10 Ml Solution, 4 DROPS OT TID Prescribed by: ADDIE RED on 02/24/21 0546 Tramadol HCl (Ultram) 50 Mg Tablet, 50 MG PO Q4H Prescribed by: HERBERT GAVIRIA on 04/26/22 223 Review of Systems Review of Systems Constitutional: no symptoms reported Mouth: see HPI Gastrointestinal: see HPI Neurological: No Symptoms Reported Past Kjkocuz-Hwzleo-Zrwwlg Hx Patient Social History Tobacco Use?: Yes Tobacco type used: Cigarettes Smoking Status: Current Everyday Smoker Use of E-Cig and/or Vaping dev: No Substance use?: No Alcohol Use?: No Pt feels they are or have been: No Immunizations Up To Date Tetanus Booster (TDap): Unknown PED Vaccines UTD: Yes Influenza Vaccine Up-to-Date: No; Not Current First/Initial COVID19 Vaccinat: 09/2021 Second COVID19 Vaccination Jw: 09/2021 Third COVID19 Vaccination Date: 09/2021 Seasonal Allergies Seasonal Allergies: No Past Medical History Surgeries: Yes (WISDOM TEETH PULLED) Respiratory: No Cardiac: No Neurological: No Reproductive Disorders: No Genitourinary: No Gastrointestinal: No Musculoskeletal: No Endocrine: No HEENT: No Cancer: No Psychosocial: Yes ADD/ADHD, Anxiety, Bipolar, Violent Behavior, Depression Integumentary: No Blood Disorders: No Adverse Reaction/Blood Tranf: No Family Medical History Asthma Physical Exam Vital Signs Vital Signs - First Documented 04/26/22 22:06 Temp 36.9 Pulse 84 Resp 16 B/P (MAP) 139/89 (106) Pulse Ox 99 O2 Delivery Room Air Height, Weight, BMI Height: 5'8.00" Weight: 230lbs. oz. 104.642621vu; 35.00 BMI Method:Stated General Appearance: WD/WN, no apparent distress Eyes: bilateral eye normal inspection Mouth/Throat: dental tenderness (TENDERNESS AND DENTAL CARIES TO RIGHT UPPER 2ND MOLAR. NO SIGNIFICANT SURROUNDING GUM INFLAMMATION. NO SWELLING OR ERYTHEMA TO FACE. ); No mandibular swelling, No maxillary swelling Neck: normal inspection Cardiovascular: regular rate, rhythm Respiratory: normal breath sounds Neurologic/Psychiatric: pantograph setter II-XII nml as tested, no motor/sensory deficits, alert, normal mood/affect, oriented x 3 Skin: normal color, warm/dry; No rash Progress/Results/Core Measures Results/Orders My Orders Orders - KHADRA,HERBERT K DO Lidocaine 2% Viscous 15 Ml (Xylocaine Vi (04/26/22 22:30) Rx-Naproxen (Rx-Naprosyn) (04/26/22 22:28) Rx-Tramadol Hcl (Rx-Ultram) (04/26/22 22:28) Vital Signs/I&O 04/26/22 22:06 Temp 36.9 Pulse 84 Resp 16 B/P (MAP) 139/89 (106) Pulse Ox 99 O2 Delivery Room Air Blood Pressure Mean: 106 Departure Impression Primary Impression: Dental caries Disposition: HOME, SELF-CARE Condition: Stable Departure-Patient Inst. Decision time for Depature: 22:29 Referrals: [facility] (PCP/Family) Primary Care Physician Patient Instructions: Tooth Decay, Adult (DC) Add. Discharge Instructions: CONTINUE CLINDAMYCIN PRESCRIBED CONTACT YOUR DENTIST TOMORROW FOR FURTHER CARE All discharge instructions reviewed with patient and/or family. Voiced understanding. Scripts Tramadol HCl (Ultram) 50 Mg Tablet 50 MG PO Q4H for Pain, #10 TAB Prov: HERBERT GAVIRIA DO 04/26/22 Naproxen (Naproxen) 500 Mg Tablet.dr 500 MG PO BID, #20 TAB Prov: HERBERT GAVIRIA DO 04/26/22 Lidocaine HCl (Lidocaine HCl Viscous) 2 % Solution 1-2 ML MM [id number], #120 ML Prov: HERBERT GAVIRIA DO 04/26/22 HERBERT GAVIRIA DO Apr 26, 2022 22:31
== END 2022-04-26 22:55 | disposition home or self-care (01) ==
LOC: EDUNIT# 21:46 → ER 21:48
DX: K02.9 Dental caries, unspecified (principal); F17.210 Nicotine dependence, cigarettes, uncomplicated
CPT/HCPCS: 99283

== ENCOUNTER 2022-06-07 01:11 | Emergency (ER) | payer BC ==
[~2022-06-07] VITALS: Ht 175 cm; Wt 108.0 kg
[~2022-06-07 01:11] MED LIST changes: +LIDO20SO23 MM; +NAPR500T8 PO; +TRAM-42 PO
--- NOTE | 2022-06-07 01:43 | ED Cough/URI ---
General Chief Complaint: Cough/Cold/Flu Symptoms Stated Complaint: STS FEELS LIKE SOMETHING IN LUNGS NEEDS COUGHED UP Nursing Triage Note: patient verbalized COVID diagnosis three weeks ago. patient has a persistant cough, states feels like something is in his lungs. patient takes mucinex with no relief Source: patient Exam Limitations: no limitations History of Present Illness Date Seen by Provider: Jun 07, 2022 Time Seen by Provider: 01:22 Initial Comments Patient to the ER by private conveyance with chief complaint he has had a nonproductive cough for the past 3 weeks. He was diagnosed with COVID-19 3 weeks ago. He is not having any fevers or chills. No productive cough. He typically smokes about a pack every day or 2. He has only had 4 cigarettes today. He went through a bottle Mucinex without any significant relief of symptoms. He does not have any nausea vomiting fevers or chills. He does have vaccine with [employer] but no booster. No other significant long history. He works on roofs. Allergies and Home Medications Allergies Coded Allergies: No Known Drug Allergies (Unverified , 02/13/14) Patient Home Medication List Home Medication List Reviewed: Yes Albuterol Sulfate (Proair Hfa) 1 Puff Puff, 2 PUFF IH Q4H PRN for COUGH Prescribed by: ADDIE RED on 06/07/22 0324 Amoxicillin/Potassium Clav (Augmentin 875-125 Tablet) 1 Each Tablet, 1 EACH PO BID Prescribed by: ADDIE RED on 02/24/21 0546 Benzonatate (Tessalon Perles) 100 Mg Capsule, 100 MG PO Q6H PRN for COUGH Prescribed by: ADDIE RED on 06/07/22 0324 Escitalopram Oxalate (Lexapro) 5 Mg Tablet, Unknown Dose PO, (Reported) Entered as Reported by: TAMMIE RODRIGUEZ on 02/24/21 0510 Hydrocodone/Acetaminophen (Hydrocodone-Acetamin 5-325 mg) 1 Each Tablet, 1 TAB PO Q4H PRN for PAIN-MODERATE (5-7) Prescribed by: CARLA MONGE on 10/16/21 1654 Lidocaine HCl (Lidocaine HCl Viscous) 2 % Solution, 1-2 ML MM [id number] Prescribed by: HERBERT GAVIRIA on 04/26/22 2230 Naproxen (Naproxen) 500 Mg Tablet.dr, 500 MG PO BID Prescribed by: HERBERT GAVIRIA on 04/26/222229 Neomycin/Polymyxin B Sulf/Hc (Txzhrnhi-Owqgfqmlj-Gp Ear Soln) 10 Ml Solution, 4 DROPS OT TID Prescribed by: ADDIE RED on 02/24/21 0546 Tramadol HCl (Ultram) 50 Mg Tablet, 50 MG PO Q4H Prescribed by: HERBERT GAVIRIA on 04/26/222230 Review of Systems Review of Systems Constitutional: No chills, No fever, No malaise EENTM: No ear discharge, No hearing loss Respiratory: cough; No phlegm; short of breath, wheezing Cardiovascular: No edema, No Hx of Intervention, No palpitations Gastrointestinal: No abdominal pain, No constipation, No diarrhea, No nausea Genitourinary: No discharge, No dysuria Musculoskeletal: No back pain, No joint pain All Other Systems Reviewed Negative Unless Noted: Yes Past Xdijnur-Vvfvjf-Mcmcea Hx Patient Social History Tobacco Use?: Yes Tobacco type used: Cigarettes Smoking Status: Current Everyday Smoker Immunizations Up To Date Tetanus Booster (TDap): Unknown PED Vaccines UTD: Yes First/Initial COVID19 Vaccinat: 09/2021 Second COVID19 Vaccination Jw: 09/2021 Third COVID19 Vaccination Date: 09/2021 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: [employer] Seasonal Allergies Seasonal Allergies: No Past Medical History Surgeries: Yes (WISDOM TEETH PULLED) Respiratory: No Cardiac: No Neurological: No Reproductive Disorders: No Genitourinary: No Gastrointestinal: No Musculoskeletal: No Endocrine: No HEENT: No Cancer: No Psychosocial: Yes ADD/ADHD, Anxiety, Bipolar, Violent Behavior, Depression Integumentary: No Blood Disorders: No Adverse Reaction/Blood Tranf: No Family Medical History Asthma Physical Exam Vital Signs - First Documented 06/07/22 01:30 Temp 36.5 Pulse 85 Resp 20 B/P (MAP) 134/76 (95) Pulse Ox 96 O2 Delivery Room Air Capillary Refill : Less Than 3 Seconds Height: 5'8.00" Weight: 230lbs. oz. 104.784546kf; 35.00 BMI Method:Stated General Appearance: WD/WN, no apparent distress Eyes: Bilateral Eye Normal Inspection, Bilateral Eye PERRL, Bilateral Eye EOMI HEENT: PERRL/EOMI, normal ENT inspection, pharynx normal Neck: full range of motion, supple, normal inspection Respiratory: no respiratory distress, no accessory muscle use (Oxygen saturation 97 to 98% nonlabored breathing on room air); No crackles, No rales; wheezing (Faint, bilateral) Cardiovascular: normal peripheral pulses, regular rate, rhythm Gastrointestinal: non tender, soft Neurologic/Psychiatric: alert, normal mood/affect, oriented x 3 Skin: normal color, warm/dry Progress/Results/Core Measures Suspected Sepsis SIRS Temperature: Pulse: 85 Respiratory Rate: 20 Blood Pressure 134 /76 Mean: 95 Results/Orders My Orders Orders - ADDIE RED Albuterol/Ipra Inhalation Soln (Duoneb I (06/07/22 01:45) Svn Small Volume Nebulizer (06/07/22 01:36) Chest Pa/Lat (2 View) (06/07/22 01:36) Medications Given in ED Vital Signs/I&O 06/07/22 06/07/22 01:30 03:45 Temp 36.5 36.5 Pulse 85 85 Resp 20 20 B/P (MAP) 134/76 (95) 134/76 Pulse Ox 96 96 O2 Delivery Room Air Room Air Capillary Refill : Less Than 3 Seconds Blood Pressure Mean: 95 Progress Note #1: Time: 01:42 Progress Note We will trial a DuoNeb and see if that helps. We will also provide him with a prescription for Tessalon Perles. 2 view chest x-ray. Aseptic vital signs. Encouraged him to reduce the amount that he smokes. Progress Note #2: Time: 03:22 Progress Note Patient felt some improvement after his breathing treatment. He is not having cough anymore. Diagnostic Imaging Diagonstic Imaging: Xray Plain Films/CT/US/NM/MRI: chest Comments No acute cardiopulmonary process on two-view chest. [facility]. [place], [place] NAME: ZACH MACIAS MED REC#: [id number] PT STATUS: DEP ER : 2000 PHYSICIAN: ADDIE RED MD ADMIT DATE: 06/07/22/ER Signed Date of Exam:06/07/22 CHEST PA/LAT (2 VIEW) INDICATION: Cough. Compared 10/29/2015 and 12/21/2020. FINDINGS: No infiltrate, effusion, pneumothorax or acute failure pattern. No free air beneath the diaphragms. IMPRESSION: No acute appearing abnormality. Dictated by: Dictated on workstation # [id number] Dict: 06/07/2231 Trans: 06/07/22 1125 JOSESITO [id number] Interpreted by: TALIB VALADEZ Electronically signed by: TALIB VALADEZ 06/07/22 1125 Reviewed: Reviewed by Me Departure Impression Primary Impression: Post-COVID chronic cough Disposition: HOME, SELF-CARE Condition: Stable Departure-Patient Inst. Decision time for Depature: 03:22 Referrals: [facility] (PCP/Family) Primary Care Physician Patient Instructions: Cough, Adult (DC) Add. Discharge Instructions: 2 puffs out of the albuterol inhaler every 4 hours as needed for wheezing, shortness of air or coughing fits. 1 capsule of Tessalon Perles every 6 hours as needed for coughing fits. If you are not seeing some improvement in the next 1 to 2 weeks then follow-up with your primary care doctor for reevaluation. All discharge instructions reviewed with patient and/or family. Voiced understanding. Scripts Albuterol Sulfate (PROAIR HFA) 1 Puff Puff 2 PUFF IH Q4H PRN for COUGH, #1 EA 0 Refills 1 PUFF = 90 MCG Prov: ADDIE RED 06/07/22 Benzonatate (TESSALON PERLES) 100 Mg Capsule 100 MG PO Q6H PRN for COUGH, #20 CAP 0 Refills Prov: ADDIE RED 06/07/22 Work/School Note: Work Release Form Date Seen in the Emergency Department: Jun 07, 2022 Return to Work: Jun 08, 2022 Restrictions: No Restrictions ADDIE RED Jun 07, 2022 01:43
[2022-06-07] MEDS ORDERED: RT-ALBUTEROL/IPRATROPIUM 3 ML (DUONEB) VIAL INH ONE (01:45)
[2022-06-07] MEDS ORDERED: RT-ALBUINH IH (03:24)
[2022-06-07] MEDS ORDERED: BENZ100C18 PO (03:24)
[2022-06-07 03:45] VITALS: BP 134/76
--- NOTE | 2022-06-07 06:53 | Diagnostic Imaging Report ---
INDICATION: Cough. Compared 10/29/2015 and 12/21/2020. FINDINGS: No infiltrate, effusion, pneumothorax or acute failure pattern. No free air beneath the diaphragms. IMPRESSION: No acute appearing abnormality. Dictated by: Dictated on workstation # [id number]
== END 2022-06-07 03:45 | disposition home or self-care (01) ==
LOC: EDUNIT# 01:11 → ER 01:17
DX: R05.3 Chronic cough (principal); U09.9 Post COVID-19 condition, unspecified; F17.210 Nicotine dependence, cigarettes, uncomplicated
CPT/HCPCS: 71046; 99285

== ENCOUNTER 2022-07-21 19:49 | Emergency (ER) | payer BC ==
[~2022-07-21] VITALS: Ht 175.3 cm; Wt 104.3 kg
[~2022-07-21 19:49] MED LIST changes: +BENZ100C18 PO; +RT-ALBUINH IH
[2022-07-21 20:22] VITALS: BP 115/80
--- NOTE | 2022-07-21 20:33 | ED Lower Extremity ---
General Chief Complaint: Lower Extremity Stated Complaint: FOOT INJURY Source: patient Exam Limitations: no limitations History of Present Illness Date Seen by Provider: Jul 21, 2022 Time Seen by Provider: 20:31 Allergies and Home Medications Allergies Coded Allergies: No Known Drug Allergies (Unverified , 02/13/14) Patient Home Medication List Albuterol Sulfate (Proair Hfa) 1 Puff Puff, 2 PUFF IH Q4H PRN for COUGH Prescribed by: ADDIE RED on 06/07/22 0324 Amoxicillin/Potassium Clav (Augmentin 875-125 Tablet) 1 Each Tablet, 1 EACH PO BID Prescribed by: ADDIE RED on 02/24/21 0546 Benzonatate (Tessalon Perles) 100 Mg Capsule, 100 MG PO Q6H PRN for COUGH Prescribed by: ADDIE RED on 06/07/22 0324 Escitalopram Oxalate (Lexapro) 5 Mg Tablet, Unknown Dose PO, (Reported) Entered as Reported by: TAMMIE RODRIGUEZ on 02/24/21 0510 Hydrocodone/Acetaminophen (Hydrocodone-Acetamin 5-325 mg) 1 Each Tablet, 1 TAB PO Q4H PRN for PAIN-MODERATE (5-7) Prescribed by: CARLA MONGE on 10/16/21 1654 Lidocaine HCl (Lidocaine HCl Viscous) 2 % Solution, 1-2 ML MM [id number] Prescribed by: HERBERT GAVIRIA on 04/26/22 223 Naproxen (Naproxen) 500 Mg Tablet.dr, 500 MG PO BID Prescribed by: HERBERT GAVIRIA on 04/26/222229 Neomycin/Polymyxin B Sulf/Hc (Cuvzefkr-Hwgaipeby-Sf Ear Soln) 10 Ml Solution, 4 DROPS OT TID Prescribed by: ADDIE RED on 02/24/21 0546 Tramadol HCl (Ultram) 50 Mg Tablet, 50 MG PO Q4H Prescribed by: HERBERT GAVIRIA on 04/26/222230 Past Ymsboxu-Qlqske-Vnuzac Hx Patient Social History Tobacco Use?: Yes Tobacco type used: Cigarettes Smoking Status: Current Everyday Smoker Use of E-Cig and/or Vaping dev: Yes E-Cig or Vaping type used: Nicotine Use of E-Cig and/or Vaping Vlad: Current Everyday User Substance use?: No Alcohol Use?: No Immunizations Up To Date Tetanus Booster (TDap): Unknown PED Vaccines UTD: Yes First/Initial COVID19 Vaccinat: 09/2021 Second COVID19 Vaccination Jw: 09/2021 Third COVID19 Vaccination Date: 09/2021 Seasonal Allergies Seasonal Allergies: No Past Medical History Surgeries: Yes (WISDOM TEETH PULLED) Respiratory: No Cardiac: No Neurological: No Reproductive Disorders: No Genitourinary: No Gastrointestinal: No Musculoskeletal: No Endocrine: No HEENT: No Cancer: No Psychosocial: Yes ADD/ADHD, Anxiety, Bipolar, Violent Behavior, Depression Integumentary: No Blood Disorders: No Adverse Reaction/Blood Tranf: No Family Medical History Asthma Physical Exam Vital Signs Capillary Refill : Height, Weight, BMI Height: 5'8.00" Weight: 230lbs. oz. 104.488254bg; 35.00 BMI Method:Stated Departure Impression Primary Impression: Stepped on nail Disposition: HOME, SELF-CARE Condition: Stable/Unchanged Departure-Patient Inst. Decision time for Depature: 20:31 Referrals: [facility] (PCP/Family) Primary Care Physician Patient Instructions: Wound Care (DC) Add. Discharge Instructions: Plan: 1. Monitor for any signs of infection such as increased redness, swelling, pain, purulent (greenish/yellowish drainage). he will need antibiotics and you can go to any local urgent care or you can return if symptoms develop. 2. Make sure you keep your foot nice and clean, wash with mild soap and water apply clean socks, make sure you change her footwear. 3. Return to the ER for any new, concerning, worsening symptoms. All discharge instructions reviewed with patient and/or family. Voiced understanding. CORNELIUS RAMOS ADDICTION TREATMENT COUNSELOR Jul 21, 2022 20:33
== END 2022-07-21 20:40 | disposition home or self-care (01) ==
LOC: EDUNIT# 19:49 → ER 19:51
DX: S99.929A Unspecified injury of unspecified foot, initial encounter (principal); F17.210 Nicotine dependence, cigarettes, uncomplicated; W45.0XXA Nail entering through skin, initial encounter
CPT/HCPCS: 99281

== ENCOUNTER 2022-12-06 22:35 | Emergency (ER) | payer SELFPAY ==
[~2022-12-06] VITALS: Ht 175.3 cm; Wt 113.4 kg
[~2022-12-06 22:35] MED LIST changes: +ALBU8.5H6 IH; +LIDO15SO6 MM; -LIDO20SO23 MM; -RT-ALBUINH IH
[2022-12-06 22:43] VITALS: BP 151/93
[2022-12-06] MEDS ORDERED: TETRACAINE 0.5% OPHTH SOLN 4 ML BTL (SINGLE DOSE ONLY) OU ONE (23:00)
[2022-12-06] MEDS ORDERED: FLUORESCEIN (FLUOR-I-STRIPS) 1 MG STRP OU ONE (23:00)
[2022-12-06] MEDS ORDERED: BSS 15 ML IR ONE (23:00)
--- NOTE | 2022-12-06 23:18 | ED EENT ---
History of Present Illness General Chief Complaint: Eye Problems Stated Complaint: FB IN RIGHT EYE Nursing Triage Note: PT AMB TO [facility] 6 W C/O POSS METAL SHAVING IN RIGHT EYE SX APPROX 1200 TODAY. PT REPORTS HE WENT TO [facility] AFTER INCIDENT, WAS ADVISED THEY CAN'T FIND PROPER EQUIPMENT. PT UNABLE TO FIND RELIEF DESPITE FLUSHING EYE W SALINE, A&OX4, C/O PAIN. Allergies and Home Medications Allergies Coded Allergies: Penicillins (Verified Allergy, Unknown, 12/06/22) Patient Home Medication List Albuterol Sulfate (Ventolin Hfa) 1 Puff Puff, 2 PUFF IH Q4H PRN for COUGH Prescribed by: ADDIE RED on 06/07/22 0324 Amoxicillin/Potassium Clav (Augmentin 875-125 Tablet) 1 Each Tablet, 1 EACH PO BID Prescribed by: ADDIE RED on 02/24/21 0546 Benzonatate (Tessalon Perles) 100 Mg Capsule, 100 MG PO Q6H PRN for COUGH Prescribed by: ADDIE RED on 06/07/22 0324 Escitalopram Oxalate (Lexapro) 5 Mg Tablet, Unknown Dose PO, (Reported) Entered as Reported by: TAMMIE RODRIGUEZ on 02/24/21 0510 Hydrocodone/Acetaminophen (Hydrocodone-Acetamin 5-325 mg) 1 Each Tablet, 1 TAB PO Q4H PRN for PAIN-MODERATE (5-7) Prescribed by: CARLA MONGE on 10/16/21 165 Lidocaine HCl (Lidocaine HCl Viscous) 2 % Solution, 1-2 ML MM [id number] Prescribed by: HERBERT GAVIRIA on 04/26/22 223 Naproxen (Naproxen) 500 Mg Tablet.dr, 500 MG PO BID Prescribed by: HERBERT GAVIRIA on 04/26/222229 Neomycin/Polymyxin B Sulf/Hc (Zoxxskby-Umlvacdjr-He Ear Soln) 10 Ml Solution, 4 DROPS OT TID Prescribed by: ADDIE RED on 02/24/21 05 Tramadol HCl (Ultram) 50 Mg Tablet, 50 MG PO Q4H Prescribed by: HERBERT GAVIRIA on 04/26/222230 Past Bbscaiw-Udhvfl-Layfrj Hx Patient Social History Tobacco Use?: Yes Tobacco type used: Cigarettes Smoking Status: Current Everyday Smoker Use of E-Cig and/or Vaping dev: No Substance use?: No Alcohol Use?: No Immunizations Up To Date Tetanus Booster (TDap): Unknown PED Vaccines UTD: Yes Influenza Vaccine Up-to-Date: No; Not Current First/Initial COVID19 Vaccinat: 09/2021 Second COVID19 Vaccination Jw: NONE Third COVID19 Vaccination Date: NONE 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[employer] Seasonal Allergies Seasonal Allergies: No Past Medical History Surgeries: Yes (WISDOM TEETH PULLED) Respiratory: No Cardiac: No Neurological: No Reproductive Disorders: No Genitourinary: No Gastrointestinal: No Musculoskeletal: No Endocrine: No HEENT: No Cancer: No Psychosocial: Yes ADD/ADHD, Anxiety, Bipolar, Violent Behavior, Depression Integumentary: No Blood Disorders: No Adverse Reaction/Blood Tranf: No Family Medical History Asthma Physical Exam Vital Signs Vital Signs - First Documented 12/06/22 22:43 Temp 37.0 Pulse 106 Resp 20 B/P (MAP) 151/93 (112) Pulse Ox 97 O2 Delivery Room Air Height, Weight, BMI Height: 5'8.00" Weight: 230lbs. oz. 104.475874iy; 36.00 BMI Method:Stated Progress/Results/Core Measures Results/Orders My Orders Orders - HERBERT GAVIRIA DO Tetracaine 0.5% Ophth Thuy Sdv (Tetracai (12/06/22 23:00) Fluorescein Strips (Lhuyv-C-Vuqoxl) (12/06/22 23:00) Balanced Salt Irrigation Soln (Bss Irrig (12/06/22 23:00) Rx-Ofloxacin 0.3% Ophth Soln (Rx-Ocuflox (12/07/22 00:00) Medications Given in ED Current Medications Medications Dose Ordered Sig/Genesis Route Start Time Stop Time Status Last Admin Dose Admin Balanced Salt Solution 15 ml ONCE ONCE IR 12/06/22 23:00 12/06/22 23:01 DC 12/06/22 23:04 15 ML Fluorescein Sodium 1 mg ONCE ONCE OU 12/06/22 23:00 12/06/22 23:01 DC 12/06/22 23:04 1 MG Tetracaine HCl 4 ml ONCE ONCE OU 12/06/22 23:00 12/06/22 23:01 DC 12/06/22 23:04 4 ML Vital Signs/I&O 12/06/22 22:43 Temp 37.0 Pulse 106 Resp 20 B/P (MAP) 151/93 (112) Pulse Ox 97 O2 Delivery Room Air Blood Pressure Mean: 112 Departure Impression Primary Impression: Right corneal abrasion Disposition: HOME, SELF-CARE Condition: Stable Departure-Patient Inst. Decision time for Depature: 23:17 Referrals: [facility] (PCP/Family) Primary Care Physician AUTUMN LUNSFORD OD Patient Instructions: Corneal Abrasion (DC) Add. Discharge Instructions: COOL COMPRESSES TO EYE DO NOT RUB EYE TYLENOL AND MOTRIN NEEDED FOR PAIN USE EYE DROPS PRESCRIBED FOLLOW UP WITH DR. LUNSFORD'S OFFICE TOMORROW FOR FURTHER CARE--CALL IN THE MORNING TO SCHEDULE AN APPOINTMENT All discharge instructions reviewed with patient and/or family. Voiced understanding. HERBERT GAVIRIA DO Dec 06, 2022 23:18
[2022-12-07] MEDS ORDERED: RX-OFLOXACIN 0.3% OPHTH SOLN 5 ML OP SCH
== END 2022-12-06 23:25 | disposition home or self-care (01) ==
LOC: EDUNIT# 22:35 → ER 22:37
DX: S05.01XA Injury of conjunctiva and corneal abrasion without foreign body, right eye, initial encounter (principal); F17.210 Nicotine dependence, cigarettes, uncomplicated; Z28.311 Partially vaccinated for COVID-19; X58.XXXA Exposure to other specified factors, initial encounter
CPT/HCPCS: 99281

== ENCOUNTER 2023-03-27 22:54 | Emergency (ER) | payer SELFPAY ==
[~2023-03-27] VITALS: Ht 175 cm; Wt 114.0 kg
[~2023-03-27 22:54] MED LIST changes: +LIDO15SO3 MM; -LIDO15SO6 MM
[2023-03-27 23:02] VITALS: BP 126/82
--- NOTE | 2023-03-27 23:17 | ED General ---
General Chief Complaint: Oral/Throat Problems Stated Complaint: SORE THROAT Source of Information: Patient Exam Limitations: No Limitations History of Present Illness Date Seen by Provider: Mar 27, 2023 Time Seen by Provider: 23:03 Initial Comments 22-year-old young man presents to the emergency room with sore throat that just started today. He finds himself clearing his throat and having some postnasal drainage as well. He denies any fever, chills, shortness of breath, cough, GI symptoms, or other symptoms of acute illness. He looked in his throat and noticed a spot on the left side of the posterior pharynx he was concerned about. His family told him there is a family history of lung cancer and so he should get this checked out immediately. That is why he chose to come to the emergency room. Vital signs are unremarkable. He does not take any prescription medications and has not taken any medication for his pain today. Allergies and Home Medications Allergies Coded Allergies: Penicillins (Verified Allergy, Unknown, 12/06/22) Patient Home Medication List Home Medication List Reviewed: Yes Albuterol Sulfate (Ventolin Hfa) 1 Puff Puff, 2 PUFF IH Q4H PRN for COUGH Prescribed by: ADDIE RED on 06/07/22 0324 Amoxicillin/Potassium Clav (Augmentin 875-125 Tablet) 1 Each Tablet, 1 EACH PO BID Prescribed by: ADDIE RED on 02/24/21 0546 Benzonatate (Tessalon Perles) 100 Mg Capsule, 100 MG PO Q6H PRN for COUGH Prescribed by: ADDIE RED on 06/07/22 0324 Escitalopram Oxalate (Lexapro) 5 Mg Tablet, Unknown Dose PO, (Reported) Entered as Reported by: TAMMIE RODRIGUEZ on 02/24/21 0510 Hydrocodone/Acetaminophen (Hydrocodone-Acetamin 5-325 mg) 1 Each Tablet, 1 TAB PO Q4H PRN for PAIN-MODERATE (5-7) Prescribed by: CARLA MONGE on 10/16/21 1654 Lidocaine HCl (Lidocaine HCl Viscous) 2 % Solution, 1-2 ML MM [id number] Prescribed by: HERBERT GAVIRIA on 04/26/22 223 Naproxen (Naproxen) 500 Mg Tablet.dr, 500 MG PO BID Prescribed by: HERBERT GAVIRIA on 8/1/22 2230 Neomycin/Polymyxin B Sulf/Hc (Ipyrtvjj-Hnvesvtly-We Ear Soln) 10 Ml Solution, 4 DROPS OT TID Prescribed by: ADDIE RED on 02/24/21 0546 Tramadol HCl (Ultram) 50 Mg Tablet, 50 MG PO Q4H Prescribed by: HERBERT GAVIRIA on 04/26/22 2231 Review of Systems Review of Systems Constitutional: no symptoms reported EENTM: see HPI Respiratory: no symptoms reported Cardiovascular: no symptoms reported Gastrointestinal: no symptoms reported Genitourinary: no symptoms reported Musculoskeletal: no symptoms reported Skin: no symptoms reported Psychiatric/Neurological: No Symptoms Reported Hematologic/Lymphatic: No Symptoms Reported Past Ukdmruz-Hnagra-Giyzfa Hx Patient Social History Tobacco Use?: Yes Use of E-Cig and/or Vaping dev: No Substance use?: No Alcohol Use?: No Immunizations Up To Date Tetanus Booster (TDap): Less than 5yrs PED Vaccines UTD: Yes First/Initial COVID19 Vaccinat: 09/2021 Second COVID19 Vaccination Jw: NONE Third COVID19 Vaccination Date: NONE Seasonal Allergies Seasonal Allergies: No Past Medical History Surgeries: Yes (WISDOM TEETH PULLED) Respiratory: No Cardiac: No Neurological: No Reproductive Disorders: No Genitourinary: No Gastrointestinal: No Musculoskeletal: No Endocrine: Yes (Obesity) HEENT: No Cancer: No Psychosocial: Yes ADD/ADHD, Anxiety, Bipolar, Violent Behavior, Depression Integumentary: No Blood Disorders: No Adverse Reaction/Blood Tranf: No Family Medical History Asthma Physical Exam Vital Signs Vital Signs - First Documented 03/27/23 23:02 Temp 36.6 Pulse 116 Resp 16 B/P (MAP) 126/82 (97) Capillary Refill : Height, Weight, BMI Height: 5'8.00" Weight: 230lbs. oz. [id number]; 36.00 BMI Method:Stated General Appearance: No Apparent Distress, WD/WN, Obese HEENT: PERRL/EOMI, TMs Normal, Normal ENT Inspection, Other (Slight inflammation and irregular texture to the posterior pharynx, left greater than right. Left tonsil larger than right. No masses, abscesses, or other signi ficant abnormalities noted.) Respiratory: Lungs Clear, Normal Breath Sounds, No Accessory Muscle Use Cardiovascular: No Edema, No Murmur, Tachycardia Extremity: Normal Inspection Neurologic/Psychiatric: Alert, Oriented x3, No Motor/Sensory Deficits Skin: Warm/Dry, Other (Sunburn) Progress/Results/Core Measures Suspected Sepsis SIRS Temperature: Pulse: Respiratory Rate: Blood Pressure / Mean: Results/Orders Lab Results Laboratory Tests Test 03/27/23 23:03 03/27/23 23:23 Range/Units Group A Streptococcus Screen NEGATIVE NEGATIVE SARS-CoV-2 RNA (RT-PCR) Not Detected Not Detecte My Orders Orders - ANDREW BRUCE MD Rapid Strep A Screen (03/27/23 23:03) Covid 19 Inhouse Test (03/27/23 23:03) Throat Culture Strep A Confirm (03/27/23 23:03) Vital Signs/I&O 03/27/23 23:02 Temp 36.6 Pulse 116 Resp 16 B/P (MAP) 126/82 (97) Capillary Refill : Progress Note : Progress Note Strep and COVID tests were negative. See discharge instructions for further in structions. Departure Impression Primary Impression: Pharyngitis Qualified Codes: J02.9 - Acute pharyngitis, unspecified Disposition: HOME, SELF-CARE Condition: Stable Departure-Patient Inst. Decision time for Depature: 00:47 Referrals: [facility] (PCP/Family) Primary Care Physician Patient Instructions: Sore Throat, Adult ED Add. Discharge Instructions: You are likely having a sore throat due to a viral illness. This should resolve over the next several days. You may treat pain with ibuprofen up to 600 mg ever y 6 hours as needed and/or Tylenol (acetaminophen) up to 1000 mg every 6 hours as needed. A throat culture is being processed. If you have not improved after 48 hours, please feel free to contact the emergency room or your primary care doctor to review culture results. Return to care if you are not improving as expected over the next several days if you are developing worsening symptoms. Your COVID-19 test was negative. All discharge instructions reviewed with patient and/or family. Voiced understanding. ANDREW BRUCE MD Mar 27, 2023 23:17
== END 2023-03-28 00:58 | disposition home or self-care (01) ==
LOC: EDUNIT# 22:54 → ER 22:57
DX: J02.9 Acute pharyngitis, unspecified (principal); E66.9 Obesity, unspecified; F17.200 Nicotine dependence, unspecified, uncomplicated; Z28.311 Partially vaccinated for COVID-19; Z68.36 Body mass index [BMI] 36.0-36.9, adult; Z20.822 Contact with and (suspected) exposure to COVID-19
CPT/HCPCS: 87430; 87636; 99283